=== PATIENT | male | born 1960 | race Caucasian/White ===

== ENCOUNTER 2019-02-19 16:37 | Emergency (ER) | payer OTHER ==
[~2019-02-19] VITALS: Ht 182.9 cm; Wt 95.3 kg
[2019-02-19] MEDS ORDERED: LISINOPRIL5 MG ORAL (16:40)
[2019-02-19] MEDS ORDERED: Ketorolac 30mg Inj IV ONE (16:45)
--- NOTE | 2019-02-19 16:45 | NUR ---
ED Nurse Note: PT BROUGHT IN TO ER TODAY BY [id number] FROM HOME. AOX4. PT C/O LEFT SIDED RIB PAIN, 08/13 AFTER FALL X 1 WEEK. PT DENIES HEAD TRAUMA OR LOC. PT DENIES NAUSEA OR VOMITING. NO SIGNS OF RESPIRATORY DISTRESS OR RETRACTIONS NOTED THOUGH PT DOES STATE THAT PAIN WORSENS WITH DEEP BREATHS.
[2019-02-19 16:47] VITALS: BP 132/76
--- NOTE | 2019-02-19 16:48 | Emergency Room Report ---
History of Present Illness General Chief Complaint: Pain Source: Patient, EMS Present Illness HPI Patient fell about a week ago. He was evaluated at [facility] [place]. Distally broke 9 ribs on the left-hand side and some of them were "dislocated". He's complaining about increased pain there. He's unable to cough. He also smokes and has shortness of breath and wheezing. He breaks out in chills and feels feverish when the pain gets more severe but has no documented temperature. He has been drinking alcohol today in order to decrease the pain. He states he does not drink every day. He denies any nausea , vomiting diarrhea or melena. The pain is 8/10 and worse when he takes a breath and moves. He has taken no other pain medicine except for alcohol. He denies HIV or hepatitis C. Patient states his tetanus vaccination is up-to-date. He denies alcohol withdrawal symptoms, seizures or peptic ulcer disease. He denies suicidal or homicidal ideation. Allergies: Coded Allergies: PENICILLINS (Verified Allergy, Unknown, 02/19/19) Patient History Past Medical History: see triage record Social History: Reports: smoking, alcohol use; Denies: drug use Social History Narrative on streets Reviewed Nursing Documentation: PMH: Agreed; PSxH: Agreed Nursing Documentation-PMH Past Medical History: No History, Except For Hx Hypertension: Yes History Of Psychiatric Problem: Yes Review of Systems All Other Systems: negative except mentioned in HPI Physical Exam Vital Signs Date Time Temp Pulse Resp B/P (MAP) Pulse Ox O2 Delivery O2 Flow Rate FiO2 02/19/19 16:35 98.1 106 18 139/78 99 Room Air Sp02 EP Interpretation: reviewed, normal General Appearance: mild distress Head: normocephalic, atraumatic Eyes: bilateral eye PERRL, bilateral eye Scleral Injection ENT: moist mucus membranes Neck: supple Respiratory: lungs clear - Anteriorly, normal breath sounds, other - pain L ribs, no crepetance, not referred Cardiovascular #1: tachycardia Cardiovascular #2: 2+ radial (R) Gastrointestinal: normal inspection, normal bowel sounds, non tender, no mass, non-distended Genitourinary: no CVA tenderness Musculoskeletal: back normal, gait/station normal, normal range of motion Neurologic: alert, oriented x3, grossly normal Psychiatric: mood/affect normal Skin: normal inspection, warm/dry, other - plethoric Medical Decision Making Diagnostic Impression: Primary Impression: Hemothorax Additional Impressions: Multiple rib fractures Qualified Codes: S22.42XK - Multiple fractures of ribs, left side, subsequent encounter for fracture with nonunion Alcohol abuse Bronchospasm ER Course Patient presents post rib fractures by history. Differential includes pneumothorax, pulmonary contusion, pneumonia, rib fracture pain, hemothorax, amongst others. Evaluation will be with EKG, chest x-ray and labs. The patient will be treated with Toradol and Tylenol. Based on the x-ray a CT of the chest may need to be performed. In addition the patient will receive breathing treatments. EKG ST. CXR rib fx and haziness - suspect effusion or contusion. Labs with normal WBC. Elevated BAL. Still with pain. Morphine given. CT chest with multiple rib fx and effusion (hemothorax). Calling [facility]. Accepted Dr. Victorina Hector. Repeat morphine. Patient stable to be transferred to higher level of care. Discussed with patient consideration of returning to Alcoholics Anonymous. Laboratory Tests Test 02/19/19 16:57 02/19/19 17:48 White Blood Count 6.2 K/UL (4.8-10.8) Red Blood Count 4.87 M/UL (4.70-6.10) Hemoglobin 14.4 G/DL (14.2-18.0) Hematocrit 42.5 % (42.0-52.0) Mean Corpuscular Volume 87 FL (80-99) Mean Corpuscular Hemoglobin 29.6 PG (27.0-31.0) Mean Corpuscular Hemoglobin Concent 33.9 G/DL (32.0-36.0) Red Cell Distribution Width 14.6 % (11.6-14.8) Platelet Count 448 K/UL (150-450) Mean Platelet Volume 5.4 FL (6.5-10.1) L Neutrophils (%) (Auto) 60.3 % (45.0-75.0) Lymphocytes (%) (Auto) 29.5 % (20.0-45.0) Monocytes (%) (Auto) 6.3 % (1.0-10.0) Eosinophils (%) (Auto) 2.5 % (0.0-3.0) Basophils (%) (Auto) 1.5 % (0.0-2.0) Sodium Level 141 MMOL/L (136-145) Potassium Level 3.7 MMOL/L (3.5-5.1) Chloride Level 101 MMOL/L (98-107) Carbon Dioxide Level 28 MMOL/L (21-32) Anion Gap 12 mmol/L (5-15) Blood Urea Nitrogen 9 mg/dL (7-18) Creatinine 1.2 MG/DL (0.55-1.30) Estimate Glomerular Filtration Rate > 60 mL/min (>60) Glucose Level 221 MG/DL (74-106) H Calcium Level 8.6 MG/DL (8.5-10.1) Total Bilirubin 0.3 MG/DL (0.2-1.0) Aspartate Amino Transferase (AST) 41 U/L (15-37) H Alanine Aminotransferase (ALT) 32 U/L (12-78) Alkaline Phosphatase 120 U/L (46-116) H Total Creatine Kinase 91 U/L (26-308) Troponin I 0.000 ng/mL (0.000-0.056) Total Protein 7.5 G/DL (6.4-8.2) Albumin 3.2 G/DL (3.4-5.0) L Globulin 4.3 g/dL Albumin/Globulin Ratio 0.7 (1.0-2.7) L Serum Alcohol 229 mg/dL Urine Color Pale yellow Urine Appearance Clear Urine pH 6 (4.5-8.0) Urine Specific [place]pine 1.015 (1.005-1.035) Urine Protein 2+ (NEGATIVE) H Urine Glucose (UA) 4+ (NEGATIVE) H Urine Ketones 3+ (NEGATIVE) H Urine Blood Negative (NEGATIVE) Urine Nitrite Negative (NEGATIVE) Urine Bilirubin Negative (NEGATIVE) Urine Urobilinogen Normal MG/DL (0.0-1.0) Urine Leukocyte Esterase Negative (NEGATIVE) Urine RBC 0-2 /HPF (0 - 0) H Urine WBC 0-2 /HPF (0 - 0) Urine Squamous Epithelial Cells None /LPF (NONE/OCC) Urine Bacteria Few /HPF (NONE) Urine Opiates Screen Negative (NEGATIVE) Urine Barbiturates Screen Negative (NEGATIVE) Phencyclidine (PCP) Screen Negative (NEGATIVE) Urine Amphetamines Screen Negative (NEGATIVE) Urine Benzodiazepines Screen Positive (NEGATIVE) H Urine Cocaine Screen Negative (NEGATIVE) Urine Marijuana (THC) Screen Negative (NEGATIVE) EKG Diagnostic Results Rate: tachycardiac Rhythm: NSR ST Segments: no acute changes Rhythm Strip Diag. Results EP Interpretation: yes Rhythm: no PVC's, no ectopy, other - ST Chest X-Ray Diagnostic Results Chest X-Ray Diagnostic Results : Chest X-Ray Ordered: Yes # of Views/Limited/Complete: 1 View Indication: Chest Pain EP Interpretation: Yes Interpretation: no pneumothorax, other - rib fx and increased barrett (? effusion vs contision) Impression: Other Electronically Signed by: Electronically signed by Kristopher Mata MD CT/MRI/US Diagnostic Results CT/MRI/US Diagnostic Results : Imaging Test Ordered: CT chest Impression Pleural effusion with passive atelectasis. Subacute left segmental third through ninth rib fractures several which continued to demonstrate some degree of displacement. Possible subpleural bleb left apex. Last Vital Signs Date Time Temp Pulse Resp B/P (MAP) Pulse Ox O2 Delivery O2 Flow Rate FiO2 02/19/19 21:47 98.4 76 12 138/93 98 Room Air 21 Status: improved Disposition: XFER SHT-TRM HOSP Condition: Serious Kristopher Mata MD Feb 19, 2019 16:48
[2019-02-19] MEDS ORDERED: Albuterol ud Inhalation HHN ONE (17:00)
--- NOTE | 2019-02-19 17:00 | NUR ---
ED Nurse Note: XRAY AND RT AT BEDSIDE
--- NOTE | 2019-02-19 17:13 | Diagnostic Imaging Report ---
Indication: Pain status post injury Technique: XRAY Chest 1v Comparison: None FINDINGS/IMPRESSION: Multiple displaced left-sided rib fractures are noted. There are asymmetric hazy opacities in the left hemithorax. This may related to layering pleural fluid and/or pulmonary contusions. No definite radiographically appreciable pneumothorax identified. Consider more sensitive evaluation with CT of the chest. Heart size within normal limits. Right lung is clear.
[2019-02-19 17:26] LABS: ANION GAP 12 mmol/L (5-15); BLOOD UREA NITROGEN 9 mg/dL (7-18); CALCIUM 8.6 MG/DL (8.5-10.1); CARBON DIOXIDE 28 MMOL/L (21-32); CHLORIDE 101 MMOL/L (98-107); CREATININE 1.2 MG/DL (0.55-1.30); POTASSIUM 3.7 MMOL/L (3.5-5.1); SODIUM 141 MMOL/L (136-145)
[2019-02-19 17:31] LABS: BASOPHILS % (AUTO) 1.5 % (0.0-2.0); EOSINOPHILS % (AUTO) 2.5 % (0.0-3.0); HEMATOCRIT 42.5 % (42.0-52.0); HEMOGLOBIN 14.4 G/DL (14.2-18.0); LYMPHOCYTES % (AUTO) 29.5 % (20.0-45.0); MEAN CORPUSCULAR VOLUME 87 FL (80-99); MONOCYTES % (AUTO) 6.3 % (1.0-10.0); NEUTROPHILS % (AUTO) 60.3 % (45.0-75.0); PLATELET COUNT 448 K/UL (150-450); RED BLOOD COUNT 4.87 M/UL (4.70-6.10); RED CELL DISTRIBUTION WIDTH 14.6 % (11.6-14.8); WHITE BLOOD COUNT 6.2 K/UL (4.8-10.8)
[2019-02-19 17:32] LABS: ALANINE AMINOTRANSFERASE 32 U/L (12-78); ALBUMIN 3.2 G/DL (3.4-5.0); ALBUMIN/GLOBULIN RATIO 0.7 (1.0-2.7); ALKALINE PHOSPHATASE 120 U/L (46-116); ASPARTATE AMINO TRANSFERASE 41 U/L (15-37); BILIRUBIN,TOTAL 0.3 MG/DL (0.2-1.0); CREATINE KINASE 91 U/L (26-308)
--- NOTE | 2019-02-19 17:40 | NUR ---
ED Nurse Note: PT REMINDED URINE SPECIMEN IS NEEDED. PT STATES HE IS UNABLE TO PROVIDE URINE AT THIS TIME.
[2019-02-19] MEDS ORDERED: Morphine Sulfate 4mg/ml Inj (IV USE ONLY) IVP ONE ×2 (18:15→19:45)
--- NOTE | 2019-02-19 18:18 | NUR ---
ED Nurse Note: URINE COLLECTED AND SENT TO LAB.
[2019-02-19 18:36] VITALS: BP 138/93
[2019-02-19 18:41] LABS: APPEARANCE,URINE CLEAR; BILIRUBIN, URINE NEGATIVE (NEGATIVE); COLOR,URINE PALE YELLOW; GLUCOSE, URINE (UA) 4+ (NEGATIVE); KETONES,URINE 3+ (NEGATIVE); LEUKOCYTE ESTERASE ,URINE NEGATIVE (NEGATIVE); NITRITE,URINE NEGATIVE (NEGATIVE); PH,URINE 6 (4.5-8.0); PROTEIN,URINE 2+ (NEGATIVE); UROBILINOGEN,URINE NORMAL MG/DL (0.0-1.0)
--- NOTE | 2019-02-19 19:07 | NUR ---
ED Nurse Note: Received patient from KAILYN Beltran. patient informed that he will be transferred to [facility], waiting on Room number.
--- NOTE | 2019-02-19 19:33 | NUR ---
ED Nurse Note: Gave report to KAILYN Foster
[2019-02-19 21:47] VITALS: BP 138/93
--- NOTE | 2019-02-19 21:49 | NUR ---
ER DISCHARGE NOTE: Patient is beign transferred via [facility].
--- NOTE | 2019-02-20 11:35 | Diagnostic Imaging Report ---
Indication: Chest pain status post trauma Technique: Noncontrast CT of the chest utilizing automated exposure control. Axial, sagittal and coronal reformats presented. CT dose: Total DLP 861.21 mGycm; CTDI vol 20.38 mGy Comparison: None Findings: Fractures of multiple left-sided ribs are noted, some of which demonstrate bridging callus suggestive of subacute to chronic fractures. Fractures of the posterior left 3rd-9th ribs demonstrate some callus formation. Mildly displaced fracture of the lateral left third rib demonstrates some callus. Fractures of the lateral fourth through ninth ribs, some of which are significantly displaced for example of the sixth and seventh rib fractures, may be more acute as little to no callus is noted. There is surrounding skin thickening. There is a small to moderate left-sided pleural effusion which is low in density. Some small apical blebs noted bilaterally, left greater than right which may be related to emphysematous change. No definite pneumothorax is identified. Some dependent atelectatic changes are noted in the posterior right lower lobe. There is some facet atelectasis adjacent to the left pleural effusion. Heart size within normal limits. There is no pericardial effusion. Some coronary arterial calcifications are noted. Thyroid unremarkable. Calcification in the region of the pancreatic head is noted. This is nonspecific.. Correlate clinically to exclude the possibility of choledocholithiasis. A right adrenal calcification is noted which may be sequela of prior hemorrhage or infection. There is low attenuation of the liver suggestive of hepatic steatosis. Nonspecific bilateral perinephric stranding is partially visualized. Atherosclerotic calcifications noted in a normal caliber abdominal aorta. There are degenerative changes in the spine. IMPRESSION: * Multiple left-sided rib fractures as detailed above, some of which appear subacute to chronic and others appear more acute. Some fractures are displaced. * [id number] in low-density left pleural effusion with adjacent compressive atelectasis in the left lower lobe. * Small subpleural blebs in the bilateral apices. No evidence to suggest pneumothorax. Additional incidental findings as above. This corresponds with the preliminary report. The CT scanner at [facility] is accredited by the [employer] and the scans are performed using protocols designed to limit radiation exposure to as low as reasonably achievable to attain images of sufficient resolution adequate for diagnostic evaluation.
--- NOTE | 2019-02-20 13:34 | Cardiology Report ---
APPROVED REPORT EKG Measurement Heart [id number] Sinus tachycardia Possible Left atrial enlargement Septal infarct, age undetermined Abnormal ECG
== END 2019-02-19 21:50 | disposition short-term general hospital (02) ==
LOC: EDBD 16:37 → EMR 17:11
DX: S27.1XXA Traumatic hemothorax, initial encounter (principal); S22.42XA Multiple fractures of ribs, left side, initial encounter for closed fracture; W19.XXXA Unspecified fall, initial encounter; Y92.89 Other specified places as the place of occurrence of the external cause; F10.10 Alcohol abuse, uncomplicated; J98.01 Acute bronchospasm; I10 Essential (primary) hypertension; Z88.0 Allergy status to penicillin
CPT/HCPCS: 36415; 71045; 71250; 80053; 80307; 80329; 81003; 82550; 84484; 85025; 93005; 94640; 94664; 96374; 96375; 96376; 99284; J1885; J2270